=== PATIENT | female | born 1970 | race Caucasian/White ===

== ENCOUNTER 2020-08-16 06:59 | Emergency (ER) | payer OTHER ==
[~2020-08-16] VITALS: Ht 157.5 cm; Wt 64.4 kg
[2020-08-16 07:04] VITALS: Ht 157.5 cm; Wt 64.4 kg
[2020-08-16 07:46] LABS: PLATELET COUNT 230 x10^3mcL (179-408)
[2020-08-16 07:56] LABS: CALCIUM 8.1 mg/dL (8.5-10.1); CARBON DIOXIDE 20.5 mmol/L (21-32); CHLORIDE SERUM 110 mmol/L (98-107); CREATININE SERUM 0.9 mg/dL (0.6-1.0); GFR1 > 60 mL/min; GLUCOSE SERUM 120 mg/dL (74-106); POTASSIUM SERUM 3.4 mmol/L (3.5-5.1); SODIUM SERUM 141 mmol/L (136-145)
[2020-08-16 07:57] LABS: RED CELL DISTRIBUTION WIDTH 15.7 % (12.3-17.7)
[2020-08-16 08:01] LABS: ALBUMIN 3.4 g/dL (3.4-5.0); ALKALINE PHOSPHATASE 77 U/L (46-116); ALT/SGPT 40 U/L (14-59); AST/SGOT 50 U/L (15-37); BILIRUBIN TOTAL 0.21 mg/dL (0.20-1.00); LIPASE 185 IU/L (73-393); TOTAL PROTEIN, SERUM 6.8 g/dL (6.4-8.2)
[2020-08-16 08:10] LABS: microscopic required? NO
[2020-08-16 08:37] LABS: urine erythrocyte NEGATIVE (NEGATIVE)
[2020-08-16 10:14] VITALS: BP 113/77
[2020-08-16] MEDS ORDERED: ZOF4 PO (11:33)
[2020-08-16] MEDS ORDERED: DICYCLOMINE HYD10 M1 PO (11:33)
== END 2020-08-16 11:43 | disposition home or self-care (01) ==
LOC: ED 06:59
PROVIDERS: Emergency Medicine
DX: D25.9 Leiomyoma of uterus, unspecified (principal)
CPT/HCPCS: J1885; J2405; J7030